=== PATIENT | female | born 1965 | race Caucasian/White ===

== ENCOUNTER 2017-04-19 11:18 | Emergency (ER) | payer BC ==
[2017-04-19] MEDS ORDERED: MECLIZINE HCL 25 MG TABLET PO ONE ×3 (11:50→15:30)
[2017-04-19] MEDS ORDERED: LORAZEPAM 1 MG TABLET PO ONE (11:50)
--- NOTE | 2017-04-19 11:51 | ER Document Report ---
ED Medical Screen (RME) - General Chief Complaint: Dizziness Stated Complaint: NAUSEA AND VOMITING Time Seen by Provider: 04/19/17 11:34 Mode of Arrival: Medic Information source: Patient, Relative Notes: 51-year-old female history of vertigo has been seen multiple times for similar dizziness in the past presents with complaints of the room spinning. Patient notes her last episode was 2 weeks ago I have greeted and performed a rapid initial assessment of this patient. A comprehensive ED assessment and evaluation of the patient, analysis of test results and completion of the medical decision making process will be conducted by additional ED providers. PHYSICAL EXAMINATION: GENERAL: Well-appearing holding her head. HEAD: Atraumatic, normocephalic. EYES: Pupils equal round extraocular movements intact, conjunctiva are normal. ENT: Nares patent NECK: Normal range of motion LUNGS: No respiratory distress Musculoskeletal: Normal range of motion NEUROLOGICAL: admits to vertigo PSYCH: Normal mood, normal affect. SKIN: Warm, Dry, normal turgor, no rashes or lesions noted. TRAVEL OUTSIDE OF THE [place] IN LAST 30 DAYS: No - Related Data Allergies/Adverse Reactions: clindamycin [Clindamycin] Allergy (Severe, Verified 04/19/17 11:22) rash swelling morphine [Morphine] Allergy (Severe, Verified 04/19/17 11:22) Hypotension Penicillins Allergy (Intermediate, Verified 04/19/17 11:22) pass out oxycodone HCl [From Percocet] Adverse Reaction (Severe, Verified 04/19/17 11:22) VOMITING aspirin [Aspirin] Adverse Reaction (Intermediate, Verified 04/19/17 11:22) VOMITING erythromycin base [Erythromycin Base] Adverse Reaction (Intermediate, Verified 04/19/17 11:22) VOMITING Home Medications: Current Home Medications Gabapentin [Gabapentin] 300 mg PO TID 04/19/17 [History] Lisinopril/Hydrochlorothiazide [Lisinopril-Hctz 20-12.5 mg Tab] 1 each PO DAILY 04/19/17 [History] Venlafaxine HCl ER [Effexor Xr 75 mg Cap.sr] 150 mg PO DAILY 04/19/17 [History] Past Medical History - Social History Chew tobacco use (# tins/day): No Frequency of alcohol use: None Drug Abuse: None - Past Medical History Cardiac Medical History: Reports: Hx Hypertension Denies: Hx Coronary Artery Disease, Hx Heart Attack Pulmonary Medical History: Denies: Hx Asthma, Hx Bronchitis, Hx COPD, Hx Pneumonia, Hx Tuberculosis Neurological Medical History: Denies: Hx Cerebrovascular Accident, Hx Seizures Endocrine Medical History: Reports: Hx Diabetes Mellitus Type 2 Renal/ Medical History: Denies: Hx Peritoneal Dialysis GI Medical History: Reports: Hx Gastroesophageal Reflux Disease. Denies: Hx Hepatitis, Hx Hiatal Hernia, Hx Ulcer Musculoskeltal Medical History: Denies Hx Arthritis Psychiatric Medical History: Reports: Hx Depression Infectious Medical History: Denies: Hx Hepatitis Past Surgical History: Reports: Hx Cholecystectomy, Hx Orthopedic Surgery - left foot, Hx Tonsillectomy. Denies: Hx Hysterectomy, Hx Mastectomy, Hx Open Heart Surgery, Hx Pacemaker - Immunizations Immunizations up to date: Yes Hx Diphtheria, Pertussis, Tetanus Vaccination: Yes History of Influenza Vaccine for 04/2017 - 09/2017 Season: No Physical Exam - Vital signs Vitals: Temp Pulse Resp BP Pulse Ox 97.6 F 91 14 119/81 99 04/19/17 11:24 04/19/17 11:24 04/19/17 11:24 04/19/17 11:24 04/19/17 11:24 Course - Vital Signs Vital signs: Temp Pulse Resp BP Pulse Ox 97.6 F 91 14 119/81 99 04/19/17 11:24 04/19/17 11:24 04/19/17 11:24 04/19/17 11:24 04/19/17 11:24
[2017-04-19] MEDS ORDERED: TRIAMCINOLONE ACETONIDE 0.1% CREAM 15 GM TOP ONE (13:25)
--- NOTE | 2017-04-19 13:41 | ER Document Report ---
ED Dizziness/Weakness - General Chief Complaint: Dizziness Stated Complaint: NAUSEA AND VOMITING Time Seen by Provider: 04/19/17 11:34 Mode of Arrival: Medic Information source: Patient Notes: This 51-year-old female patient comes emergency room complaining of severe dizziness that started a little while ago. She has been worked up for vertigo including neurology evaluation. She has been told she has crystals in her ears that break loose. 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 Diagnosis was based on what sounds like a tilt test type maneuver. She states that when the symptoms come on suddenly, it is usually after she has done something such as bend over and then straighten back up. It is usually a fairly dramatic change in the position of her head. She reports the most recent exacerbation started while at work, she did not have any the medication she took previously for the problem. She has also developed a fairly pronounced rash on both cheeks since arriving here, the only thing she can think of is placing a wet paper towel or washcloth on her face while at work to try to help with the severe dizziness, lightheadedness and nausea. She did receive Ativan 2 mg p.o., Antivert 25 mg p.o., at triage about 1-1/2 hours ago. She reports that it has not helped very much. TRAVEL OUTSIDE OF THE [place] IN LAST 30 DAYS: No - Related Data Allergies/Adverse Reactions: clindamycin [Clindamycin] Allergy (Severe, Verified 04/19/17 11:22) rash swelling morphine [Morphine] Allergy (Severe, Verified 04/19/17 11:22) Hypotension Penicillins Allergy (Intermediate, Verified 04/19/17 11:22) pass out oxycodone HCl [From Percocet] Adverse Reaction (Severe, Verified 04/19/17 11:22) VOMITING aspirin [Aspirin] Adverse Reaction (Intermediate, Verified 04/19/17 11:22) VOMITING erythromycin base [Erythromycin Base] Adverse Reaction (Intermediate, Verified 04/19/17 11:22) VOMITING Home Medications: Current Home Medications Gabapentin [Gabapentin] 300 mg PO TID 04/19/17 [History] Lisinopril/Hydrochlorothiazide [Lisinopril-Hctz 20-12.5 mg Tab] 1 each PO DAILY 04/19/17 [History] Venlafaxine HCl ER [Effexor Xr 75 mg Cap.sr] 150 mg PO DAILY 04/19/17 [History] Past Medical History - General Information source: Patient - Social History Smoking Status: Never Smoker Chew tobacco use (# tins/day): No Frequency of alcohol use: None Drug Abuse: None Occupation: [employer] Family History: Reviewed & Not Pertinent, DM, Hypertension, Malignancy, Thyroid Disfunction, Other Patient has suicidal ideation: No Patient has homicidal ideation: No - Medical History Notes: The patient reports she takes Neurontin for a restless leg type problem, Effexor for depression, and lisinopril-hctz 20/12.5 for hypertension. - Past Medical History Cardiac Medical History: Reports: Hx Hypertension Pulmonary Medical History: Reports: None EENT Medical History: Reports: None Neurological Medical History: Reports: None Endocrine Medical History: Reports: None Renal/ Medical History: Reports: None GI Medical History: Reports: Hx Gastroesophageal Reflux Disease Musculoskeltal Medical History: Reports Hx Restless Leg Syndrome Psychiatric Medical History: Reports: Hx Depression Infectious Medical History: Reports: None Past Surgical History: Reports: Hx Cholecystectomy, Hx Orthopedic Surgery - left foot, Hx Tonsillectomy - Immunizations Immunizations up to date: Yes Hx Diphtheria, Pertussis, Tetanus Vaccination: Yes Hx Pneumococcal Vaccination: 07/13/13 Review of Systems - Review of Systems Constitutional: No symptoms reported EENT: See HPI Cardiovascular: No symptoms reported Respiratory: No symptoms reported Gastrointestinal: No symptoms reported Genitourinary: No symptoms reported Female Genitourinary: Post menopausal Musculoskeletal: Other - Restless legs-like syndrome Skin: No symptoms reported Hematologic/Lymphatic: No symptoms reported Neurological/Psychological: See HPI Physical Exam - Vital signs Vitals: Temp Pulse Resp BP Pulse Ox 97.6 F 91 14 119/81 99 04/19/17 11:24 04/19/17 11:24 04/19/17 11:24 04/19/17 11:24 04/19/17 11:24 Interpretation: Normal - General General appearance: Appears well, Alert - HEENT Head: Normocephalic, Atraumatic, Other - There is erythema to the face on both cheeks with an almost petechial appearance on the right face. There may be some edema to the tissue. Eyes: Normal Extraocular movements intact: Yes - There is right lateral gaze nystagmus Pupils: PERRL - Respiratory Respiratory status: No respiratory distress Breath sounds: Normal - Cardiovascular Rhythm: Regular Heart sounds: Normal auscultation Murmur: No - Abdominal Inspection: Normal - Back Back: Normal - Extremities General upper extremity: Normal inspection General lower extremity: Normal inspection - Neurological Neuro grossly intact: Yes Notes: The patient has a right lateral gaze nystagmus. When she turns her head to the left provokes mild symptoms, when she turns her head to the right it provokes much more severe symptoms. Looking about also provokes symptoms. - Psychological Associated symptoms: Normal affect, Normal mood - Skin Skin Temperature: Warm Skin Moisture: Dry Skin Color: Normal Course - Re-evaluation Re-evalutation: 04/19/17 15:30 The patient reports that the dizziness is a little better since the second dose of Antivert. We will give her a third dose. The facial rash appears about the same, perhaps a little worse on the left and earlier. 04/19/17 16:48 The patient's symptoms are a little bit better after the third dose of Antivert. She still can provoke the symptoms turning her head to the right, but much less so turning her head to the left. - Vital Signs Vital signs: Temp Pulse Resp BP Pulse Ox 97.6 F 91 19 117/76 98 04/19/17 11:24 04/19/17 11:24 04/19/17 16:14 04/19/17 16:14 04/19/17 16:14 Discharge - Discharge Clinical Impression: Vertigo Contact dermatitis Qualifiers: Contact dermatitis type: unspecified Contact dermatitis trigger: unspecified trigger Qualified Code(s): L25.9 - Unspecified contact dermatitis, unspecified cause Condition: Stable Disposition: HOME, SELF-CARE Additional Instructions: Vertigo You have experienced an episode of vertigo -- a whirling dizziness which may be accompanied by nausea and vomiting or staggering. Vertigo is often caused by an irritation of the inner ear, in which case it is called labyrinthitis. It can also be a symptom of a degenerating inner ear, nerve damage, or brain injury. Your physician has evaluated you to determine whether any further testing is necessary. Vertigo is often treated with dramamine or meclizine. These medications are helpful, but stronger medication may be needed if you are vomiting. Rest in bed. You should not drive or operate machinery until completely better. It may take one to three weeks for recovery. If there are new symptoms, such as decreased hearing or vision, severe headache, weakness or faintness, or confusion, call the physician. Take the Antivert as prescribed to help suppress your vertigo symptoms. Massage the triamcinolone cream into the affected area on your face 3 times daily. Try to remain in the upright or semi-recumbent position to avoid further stimulation of your inner ear. Follow-up with your doctor Saturday for reevaluation and possible ear nose and throat referral. RETURN TO THE EMERGENCY ROOM IF ANY NEW OR WORSENING SYMPTOMS. Prescriptions: Meclizine HCl [Antivert 25 mg Tablet] 25 mg PO TID PRN #30 tablet PRN Reason: Referrals: ISABEL GRIFFIN MD [Primary Care Provider] - 04/22/17
[2017-04-19 17:27] VITALS: BP 142/65
== END 2017-04-19 17:27 | disposition home or self-care (01) ==
LOC: ER 11:18
DX: L25.9 Unspecified contact dermatitis, unspecified cause (principal); R42 Dizziness and giddiness; R11.2 Nausea with vomiting, unspecified; Z79.899 Other long term (current) drug therapy
CPT/HCPCS: 99283; J3490

== ENCOUNTER 2017-08-24 12:03 | Emergency (ER) | payer BC ==
[2017-08-24 12:14] VITALS: BP 139/78
--- NOTE | 2017-08-24 12:41 | ER Document Report ---
HPI - HPI Patient complains to provider of: skin lesion Onset: Other - 2 months Onset/Duration: Persistent Pain Level: 4 Context: Patient states that she had a skin lesion frozen 2 months ago. Patient states since then she is had continued irritation with peeling skin to this area. Patient does acknowledge that she frequently will scratch and pick at the skin. Patient states she has been applying bandages but is concerned she might be having a reaction to the adhesive. She states area seems to be more reddened than normal. Patient denies any fever. Exacerbated by: Denies Relieved by: Denies Similar symptoms previously: Yes Recently seen / treated by doctor: No - ROS ROS below otherwise negative: Yes Systems Reviewed and Negative: Yes All other systems reviewed and negative - CONSTITUTIONAL Constitutional: DENIES: Fever, Chills - REPRODUCTIVE Reproductive: DENIES: : - DERM Skin Problems: Rash Notes: Skin lesion to right forearm Past Medical History - General Information source: Patient - Social History Smoking Status: Unknown if Ever Smoked Chew tobacco use (# tins/day): No Frequency of alcohol use: None Drug Abuse: None Occupation: [employer] Family History: Reviewed & Not Pertinent, DM, Hypertension, Malignancy, Thyroid Disfunction, Other Patient has suicidal ideation: No Patient has homicidal ideation: No - Past Medical History Cardiac Medical History: Reports: Hx Hypertension Denies: Hx Coronary Artery Disease, Hx Heart Attack Pulmonary Medical History: Denies: Hx Asthma, Hx Bronchitis, Hx COPD, Hx Pneumonia, Hx Tuberculosis Neurological Medical History: Denies: Hx Cerebrovascular Accident, Hx Seizures Endocrine Medical History: Reports: Hx Diabetes Mellitus Type 2 Renal/ Medical History: Denies: Hx Peritoneal Dialysis GI Medical History: Reports: Hx Gastroesophageal Reflux Disease. Denies: Hx Hepatitis, Hx Hiatal Hernia, Hx Ulcer Musculoskeltal Medical History: Denies Hx Arthritis Psychiatric Medical History: Reports: Hx Depression Infectious Medical History: Denies: Hx Hepatitis Past Surgical History: Reports: Hx Cholecystectomy, Hx Orthopedic Surgery - left foot, Hx Tonsillectomy. Denies: Hx Hysterectomy, Hx Mastectomy, Hx Open Heart Surgery, Hx Pacemaker - Immunizations Immunizations up to date: Yes Hx Diphtheria, Pertussis, Tetanus Vaccination: Yes Hx Pneumococcal Vaccination: 07/13/13 Vertical Provider Document - CONSTITUTIONAL Agree With Documented VS: Yes Exam Limitations: No Limitations General Appearance: WD/WN, No Apparent Distress Notes: Patient continually scratching and picking at various lesions on bilateral arms - INFECTION CONTROL TRAVEL OUTSIDE OF THE [place] IN LAST 30 DAYS: No - HEENT HEENT: Atraumatic, Normocephalic - NECK Neck: Normal Inspection - RESPIRATORY Respiratory: No Respiratory Distress O2 Sat by Pulse Oximetry: 98 - CARDIOVASCULAR Pulses: Normal: Radial - BACK Back: Normal Inspection - MUSCULOSKELETAL/EXTREMETIES Musculoskeletal/Extremeties: MAEW - NEURO Level of Consciousness: Awake, Alert, Appropriate Motor/Sensory: No Motor Deficit - DERM Integumentary: Warm, Dry, Rash - Erythematous macular rash in a distinctly rectangular pattern overlying the central scaling lesion to dorsal aspect of right wrist. Area concerning for possible contact dermatitis due to the dressing or the ointment used on the dressing. Mild erythema noted to central scaling lesion. Course - Re-evaluation Re-evalutation: 08/24/17 12:39 Patient incessantly picking at skin. Patient encouraged to avoid scratching at the skin to avoid using any type of adhesive as it appears she is having a sensitivity to the adhesive. - Vital Signs Vital signs: Temp Pulse Resp BP Pulse Ox 98.0 F 84 16 139/78 H 98 08/24/17 12:12 08/24/17 12:12 08/24/17 12:12 08/24/17 12:12 08/24/17 12:12 Discharge - Discharge Clinical Impression: Skin lesion, Dermatitis Condition: Stable Disposition: HOME, SELF-CARE Instructions: Bactroban Ointment ([facility]) Additional Instructions: Return immediately for any new or worsening symptoms Followup with your primary care provider, call tomorrow to make a followup appointment Follow-up with a marshmallow maker for further evaluation Avoid using tape or adhesives to the wound to event skin sensitivity Avoid scratching and picking at the skin Prescriptions: Mupirocin [Bactroban 2% Ointment 22 gm] 1 applic TP TID #22 gm Referrals: ISABEL GRIFFIN MD [NO LOCAL MD] - 08/26/17
== END 2017-08-24 12:44 | disposition home or self-care (01) ==
LOC: ER 12:03
DX: L30.9 Dermatitis, unspecified (principal); I10 Essential (primary) hypertension; E11.9 Type 2 diabetes mellitus without complications; Z90.49 Acquired absence of other specified parts of digestive tract
CPT/HCPCS: 99283

== ENCOUNTER → 2017-09-19 | Outpatient (CLI) | payer BC, OTHER ==
--- NOTE | 2017-09-26 10:22 | WOMENS IMAGING REPORT ---
EXAM DESCRIPTION: 3D SCREENING MAMMO BILAT COMPLETED DATE/TIME: 09/19/2017 2:13 pm REASON FOR STUDY: SCREENING MAMMO Z12.31 ENCNTR SCREEN MAMMOGRAM FOR MALIGNANT NEOPLASM OF TIMI COMPARISON: 02/14/2016 and 11/25/2013. TECHNIQUE: Standard craniocaudal and mediolateral oblique views of each breast recorded using digita l acquisition and breast tomosynthesis. LIMITATIONS: None. FINDINGS: No masses, calcifications or architectural distortion. No areas of suspicion. Read with the assistance of CAD. .[facility] - R2 [employer]ova Version 1.3 .[facility] - R2 Cenova Version 1.3 .[facility] - R2 Cenova Version 2.4 .[facility] [place] R2 Cenova Version 2.4 .[facility] - R2 [employer] Version 9.2 IMPRESSION: NORMAL MAMMOGRAM. BIRADS 1. BREAST DENSITY: b. There are scattered areas of fibroglandular density. BIRAD: 1 NEGATIVE RECOMMENDATION: ROUTINE SCREENING COMMENT: The patient has been notified of the results by letter per SA requirements. Additional no tification policies are in place for contacting patient with suspicious or incomplete findings. Quality ID #[id number]: The [employer] recommends an annual screening mammogram for women aged 40 years or over. This facility utilizes a reminder system to ensure that all patients receive reminder letters, and/or direct phone calls for appointments. This includes reminders for routine scr eening mammograms, diagnostic mammograms, or other Breast Imaging Interventions when appropriate. Th is patient will be placed in the appropriate reminder system. The [employer] (ACR) has developed recommendations for screening MRI of the breast s in certain patient populations, to be used in conjunction with mammography. Breast MRI surveillanc e may be appropriate for women with more than 20% lifetime risk of developing breast cancer as deter mined by genetic testing, significant family history of the disease, or history of mantle radiation f or Hodgkins Disease. ACR Practice Guidelines 2008. DBT Technology DBT is a type of tomographic mammography. With conventional mammography, overlapping breast tissue ma y make lesions difficult to detect, even with good compression. DBT uses an x-ray tube that rotates a round the breast, taking images at different angles. These images are then combined to create thin sl ices of the breast that the radiologist can view as a 3D reconstruction. The [employer] unit can perform full-field digital mammograms (2D imaging); or DBT (3D imaging); or both, in a combination mode that quickly performs both the mammogram and the tomosynthesis scan while the breast is still compressed. PQRS 6045F: Fluoroscopic imaging is not utilized for breast tomosynthesis. TECHNICAL DOCUMENTATION: FINDING NUMBER: (1) ASSESSMENT: (1) JOB ID: [id number] [employer]- All Rights Reserved Reading location - IP/workstation name: [facility]-[email or web address]
== END ==
LOC: WI 13:53
PROVIDERS: ATTEND Advanced Practice Midwife
DX: Z12.31 Encounter for screening mammogram for malignant neoplasm of breast (principal)
CPT/HCPCS: 77063; 77067